=== PATIENT | male | born 1985 | race Caucasian/White ===

== ENCOUNTER 2017-05-08 21:58 | Emergency (ER) | payer MEDICARE ==
[~2017-05-08] VITALS: Ht 175.3 cm; Wt 68.2 kg
[2017-05-08 22:37] LABS: GLUCOSE,POINT OF CARE 196 MG/DL (70-110)
[2017-05-08] MEDS ORDERED: INSU300I SQ (22:37)
[2017-05-08] MEDS ORDERED: INSU100V9 SQ (22:37)
[2017-05-09 04:00] VITALS: BP 136/88
== END 2017-05-09 04:06 | disposition home or self-care (01) ==
LOC: EMS 22:00
DX: S62.398A Other fracture of other metacarpal bone, initial encounter for closed fracture (principal); E10.8 Type 1 diabetes mellitus with unspecified complications; F17.210 Nicotine dependence, cigarettes, uncomplicated; Z98.890 Other specified postprocedural states; Z88.1 Allergy status to other antibiotic agents; Z79.4 Long term (current) use of insulin; Z79.899 Other long term (current) drug therapy; W01.0XXA Fall on same level from slipping, tripping and stumbling without subsequent striking against object, initial encounter; Y93.89 Activity, other specified; Y92.89 Other specified places as the place of occurrence of the external cause; Y99.8 Other external cause status
CPT/HCPCS: 82962; 99284